=== PATIENT | female | born 1995 | race Caucasian/White ===

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

== ENCOUNTER 2017-02-16 05:49 | Inpatient (IN) | payer OTHER ==
[~2017-02-16] VITALS: Ht 160 cm; Wt 76.0 kg
--- OUTSIDE RECORDS SUMMARY | ~2017-02-16 | XMS ---
Demographics + + + | Address | [address] | | | [place] [address] | + + + | Preferred Language | Unknown | + + + | Marital Status | Unknown | + + + | Yazdanism Affiliation | Unknown | + + + | Race | Unknown | + + + | Ethnic Group | Unknown | + + + Author + + + | Author | [facility] | + + + | Organization | [facility] | + + + | Address | [address] | | | [place] [address] | + + + | Phone | | + + + Care Team Providers + + + + | Care Return To Factory Clerk Name | Role | Phone | + + + + Unavailable | Unavailable | + + + + PROBLEMS +---------+ + + +--------+ + + | Type | Condition | ICD9-CM | [id number] | Onset | Condition | SNOMED | | | | Code | Code | Dates | Status | Code | +---------+ + + +--------+ + + | Problem | Encounter | | Z34.00 | | Active | [id number] | | | for | | | [...] | | F41.9 | | Active | [id number] | +---------+ + + +--------+ + + ALLERGIES No Information SOCIAL HISTORY Never Assessed PLAN OF CARE VITAL SIGNS MEDICATIONS Unknown Medications RESULTS No Results PROCEDURES No Known procedures IMMUNIZATIONS No Known Immunizations"
== END 2017-02-18 13:15 | disposition home or self-care (01) | DRG 775 ==
LOC: FBC 05:49
PROVIDERS: ADMIT Obstetrics & Gynecology
PROC: 10E0XZZ Delivery of Products of Conception, External Approach (ICD-10-PCS; principal; 2017-02-16)
PROC: 10907ZC Drainage of Amniotic Fluid, Therapeutic from Products of Conception, Via Natural or Artificial Opening (ICD-10-PCS; 2017-02-16)
DX: O14.94 Unspecified pre-eclampsia, complicating childbirth (principal); Z88.8 Allergy status to other drugs, medicaments and biological substances; Z87.440 Personal history of urinary (tract) infections; Z86.19 Personal history of other infectious and parasitic diseases; Z83.2 Family history of diseases of the blood and blood-forming organs and certain disorders involving the immune mechanism; Z3A.37 37 weeks gestation of pregnancy; Z37.0 Single live birth
CPT/HCPCS: 36415; 82565; 84450; 84520; 84550; 85025; 85027; J2590

== ENCOUNTER 2018-04-10 12:20 | Emergency (ER) | payer OTHER ==
[~2018-04-10] VITALS: Ht 160 cm; Wt 49.9 kg
== END 2018-04-10 14:25 | disposition home or self-care (01) ==
LOC: ED 12:20
DX: G43.109 Migraine with aura, not intractable, without status migrainosus (principal); Z88.6 Allergy status to analgesic agent; Z88.7 Allergy status to serum and vaccine
CPT/HCPCS: 70450; 85651; 99284-25

== ENCOUNTER 2020-02-12 14:29 | Emergency (ER) | payer OTHER ==
[~2020-02-12] VITALS: Ht 160 cm; Wt 60.8 kg
--- NOTE | ~2020-02-12 | HP ---
[facility] [address] [place], [place] [address] Draft ADMISSION DATE: 02/12/2020 CHIEF COMPLAINT: Vaginal bleeding. HISTORY OF PRESENT ILLNESS: Ms. Marie is a very pleasant 25-year-old G2, P1-0-0-1 white female, who presents to the emergency department for possible ectopic . The patient had 1st day of LMP 01/08/2020, yielding estimated gestational age at 5 weeks 0 days. She called the office complaining of positive test and right adnexal pain. She underwent ultrasound that demonstrated an 11 mm probable gestational sac with no yolk sac or pole noted. However, color Doppler showed blood flow circulating probable gestational sac concerning for ectopic . Quant HCG was performed as an outpatient and was 30. Exam was performed yesterday in the office that demonstrated no significant adnexal tenderness. The patient presented to the office this morning complaining of slight increase in vaginal bleeding, although no change in her pain. Bimanual exam was performed this morning that demonstrated no change in her adnexa and no significant tenderness. She was given precautions and plan was made to repeat quant at 48 hours and consider methotrexate if possible. The patient had wanted to avoid the operating room if at all possible. Since being seen this morning, the patient reports a significant increase in her vaginal bleeding and reports bleeding is now like a light period. No clots or evidence of hemorrhage. She reports no nausea, vomiting, fever, or chills. No change in other symptoms. CURRENT MEDICATIONS: None. MEDICAL HISTORY: Anxiety. ALLERGIES: Ibuprofen, throat swelling. SURGICAL HISTORY: None. HOSPITALIZATION: ER for migraine and left side body numbness in 2019. FAMILY HISTORY: Father alive 40 years with a history of testicular cancer. Mother alive 38 years PATIENT NAME: SYDNEE MARIE HISTORY AND PHYSICAL DATE OF : [birth year] REPORT #: [id number] PHYSICIAN: PEPE MALONEY DO PCP: VALENTINA KENNEDY MD REPORT IS CONFIDENTIAL AND NOT TO BE RELEASED WITHOUT AUTHORIZATION [facility] [address] [place], [place] [address] Draft diagnosed with hypertension. Grandfather, testicular cancer. Grandmother, diabetes and hypertension. One twin sister and one son who is healthy. SOCIAL HISTORY: The patient denies tobacco or drug use. She is currently sexually active with one male partner. REVIEW OF SYSTEMS: A complete review of systems was performed and negative except per HPI. PHYSICAL EXAMINATION: VITAL SIGNS: Please see ER documentation. GENERAL: The patient is alert, cooperative, oriented, no acute distress. She is sitting upright in hospital bed, laughing and joking with her partner standing supportive. SKIN: [place], warm, and dry with no rashes exposed skin. HEENT: Normocephalic, atraumatic. NECK: Supple. Trachea midline. No thyromegaly. No lymphadenopathy. CHEST: Normal shape and expansion. No apparent dyspnea. HEART: Regular rate and rhythm. LUNGS: Clear to auscultation bilaterally with regular breathing rate and effort. No accessory muscle use. No wheezes, rhonchi or rales. ABDOMEN: Soft, nondistended, nontender. No hepatomegaly or splenomegaly. No obvious masses or abdominal hernia. BACK: Normal range of motion. SPINE: No CVA tenderness. PELVIC: Female genitalia normal. External genitalia and labia with normal clitoris, urethral meatus bilateral [place]'s, and Bartholin's. Vagina shows a small amount of bright red blood mixed with mucus consistent with HPI. Cervix was closed. Bimanual exam demonstrates no cervical motion tenderness. No uterine tenderness and nontender left adnexa. The right adnexa is unchanged from exam this morning and again yesterday. EXTREMITIES: No edema. ASSESSMENT: 1. Likely ectopic without intrauterine . 2. Vaginal bleeding. PLAN: We reviewed options for management with the patient. I offered the patient diagnostic laparoscopy with possible salpingectomy or salpingostomy depending on laparoscopic findings. Given unchanged physical exam and minimal to no right adnexal tenderness, I feel that it is reasonable to continue expectant management with repeat quant hCG PATIENT NAME: SYDNEE MARIE HISTORY AND PHYSICAL DATE OF : [birth year] REPORT #: [id number] PHYSICIAN: PEPE MALONEY DO PCP: VALENTINA KENNEDY MD REPORT IS CONFIDENTIAL AND NOT TO BE RELEASED WITHOUT AUTHORIZATION [facility] [address] [place], [place] [address] Draft tomorrow. Discussed that quant hCG at this point would be noninformative. Ultrasound was performed yesterday and no interval change supports, repeat ultrasound today. We again reviewed ectopic in detail including indications for evaluation in the emergency department, particularly significant increase in pelvic or abdominal pain, tachycardia, palpitations, lightheadedness, dizziness, etc. The patient understands and again would like to avoid surgery if at all possible. She will present to the lab tomorrow at 48 hours for repeat quant and will then follow up in the office tomorrow for recommendations and likely methotrexate administration. Risks, benefits, and alternatives were discussed in detail with the patient. The patient understands and agrees. Partner also understands and will monitor the patient closely and follow up to the emergency department as needed. Case was reviewed with SARINA Early attending. Pepe Maloney DO JDW/MODL /[id number] Copies: ~ PATIENT NAME: SYDNEE MARIE HISTORY AND PHYSICAL DATE OF : [birth year] REPORT #: [id number] PHYSICIAN: PEPE MALONEY DO PCP: VALENTINA KENNEDY MD REPORT IS CONFIDENTIAL AND NOT TO BE RELEASED WITHOUT AUTHORIZATION
== END 2020-02-12 15:30 | disposition home or self-care (01) ==
LOC: ED 14:29
DX: O20.9 Hemorrhage in early pregnancy, unspecified (principal); Z3A.01 Less than 8 weeks gestation of pregnancy
CPT/HCPCS: 99283

== ENCOUNTER 2020-04-13 00:04 | Emergency (ER) | payer OTHER ==
[~2020-04-13] VITALS: Ht 157.5 cm; Wt 60.0 kg
--- OUTSIDE RECORDS SUMMARY | 2020-04-13 00:06 | XMS ---
PreManage Notification: SYDNEE MARIE Security Family Life Educator Events No recent Security Events currently on file CRITERIA MET - [facility] - 2 Visits in 30 Days CARE PROVIDERS There are no care providers on record at this time. Megan has no Care Guidelines for this patient. [facility] MO.) [facility] NOTE: Visits indicate total known visits. ED/C VISIT TRACKING (12 MO.) [facility] [place] [facility] COMPLAINT: - POSSIBLE HIGH BLOOD PRESSURE 03/25/2020 13:26 [facility] [place] TYPE: Emergency COMPLAINT: - R SIDE HEADACHE, L SIDE BODY NUMBNESS DIAGNOSES: - Headache, unspecified - Allergy status to serum and vaccine - Paresthesia of skin - Allergy status to other drugs, medicaments and biological substances 02/12/2020 14:30 [facility] [place] TYPE: Emergency COMPLAINT: - VAGINAL BLEEDING DIAGNOSES: - Abnormal uterine and vaginal bleeding, unspecified - Less than 8 weeks gestation of - Hemorrhage in early , unspecified INPATIENT VISIT TRACKING (12 MO.) No inpatient visits to display in this time frame [email or web address]
--- NOTE | 2020-04-13 09:53 | EKG ---
[facility] [address] [facility] [place], [place] [address] Signed Normal sinus rhythm Normal ECG No previous ECGs available Confirmed by TYLER DELGADILLO MD ([id number]) on 04/13/2020 9:53:11 AM Electronically Signed By: TYLER DELGADILLO MD 04/13/20 0953 PATIENT NAME: SYDNEE MARIE Electrocardiogram DATE OF : [birth year] PHYSICIAN: TYLER DELGADILLO MD REPORT #: [id number] REPORT IS CONFIDENTIAL AND NOT TO BE RELEASED WITHOUT AUTHORIZATION
== END 2020-04-13 00:48 | disposition home or self-care (01) ==
LOC: ED 00:04
DX: R03.0 Elevated blood-pressure reading, without diagnosis of hypertension (principal); Z88.8 Allergy status to other drugs, medicaments and biological substances; Z88.7 Allergy status to serum and vaccine
CPT/HCPCS: 93005; 93010; 99283-25

== ENCOUNTER 2024-08-19 20:11 | Inpatient (IN) | payer OTHER ==
[~2024-08-19] VITALS: Ht 157.5 cm; Wt 61.2 kg
[2024-08-19] MEDS ORDERED: OXYTOCIN/0.9 % SODIUM CHLORIDE 500 ML IV ONE (21:07)
[2024-08-19] MEDS ORDERED: LACTATED RINGER'S 1,000 ML IV PRN (21:15)
[2024-08-19] MEDS ORDERED: CALCIUM CARBONATE 500 MG CHEW PO PRN ×2 (21:15→22:00)
[2024-08-19] MEDS ORDERED: LIDOCAINE HCL 1% 30 ML SDV INJ PRN (21:15)
[2024-08-19] MEDS ORDERED: MAGNESIUM HYDROXIDE/AL HYDROX 30 ML CUP PO PRN ×2 (21:15→22:00)
[2024-08-19] MEDS ORDERED: TERBUTALINE SULFATE 1 MG/ML AMP SUB-Q PRN (21:15)
[2024-08-19 21:27] VITALS: BP 150/93
[2024-08-19 21:30] LABS: MCH 29.7 PG (25.6-32.2); MCHC 33.3 g/dL (32.2-35.5); MCV 89.3 fL (79.4-94.8); RBC 4.48 M/uL (3.93-5.22)
[2024-08-19 21:33] LABS: PROTEIN, RANDOM URINE 23 mg/dL (NOT ESTABLISHED)
[2024-08-19 21:38] LABS: ALT (SGPT) 44.0 U/L (14-59); AST (SGOT) 30.0 U/L (15-37); GLOMERULAR FILTRATION RATE,EST 116.0 mL/min (>60); PROTEIN, TOTAL 7.3 g/dL (6.4-8.2); UREA NITROGEN 25.0 mg/dL (7-18)
[2024-08-19 21:44] LABS: AMPHETAMINES, URINE NEGATIVE (NEGATIVE); BARBITURATES, URINE NEGATIVE (NEGATIVE); BENZODIAZEPINE, URINE NEGATIVE (NEGATIVE); CANNABINOID, URINE NEGATIVE (NEGATIVE); COCAINE, URINE NEGATIVE (NEGATIVE); ECSTASY, URINE NEGATIVE (NEGATIVE); FENTANYL, URINE NEGATIVE (NEGATIVE); METHADONE, URINE NEGATIVE (NEGATIVE); OPIATES, URINE NEGATIVE (NEGATIVE); OXYCODONE, URINE NEGATIVE (NEGATIVE); PHENCYCLIDINE, URINE NEGATIVE (NEGATIVE)
[2024-08-19 21:57] LABS: ABO O
[2024-08-19 21:58] LABS: ANTIBODY SCREEN NEGATIVE; RH POSITIVE
[2024-08-19] MEDS ORDERED: BENZOCAINE 60 ML AEROSOL TOP PRN (22:00)
[2024-08-19] MEDS ORDERED: HYDROCORTISONE ACETATE 25 MG SUPP PR PRN (22:00)
[2024-08-19] MEDS ORDERED: MAGNESIUM HYDROXIDE 30 ML UDC PO PRN (22:00)
[2024-08-19] MEDS ORDERED: OXYTOCIN/0.9 % SODIUM CHLORIDE 500 ML IV SCH (22:00)
[2024-08-19] MEDS ORDERED: ACETAMINOPHEN 325 MG TAB PO PRN (22:00)
[2024-08-19] MEDS ORDERED: LIDOCAINE 2% VISCOUS 6 ML SYR TOP ONE ×2 (22:00)
[2024-08-19] MEDS ORDERED: WITCH HAZEL/GLYCERIN 1 EA PAD TOP PRN (22:00)
[2024-08-19] MEDS ORDERED: NIFEdipine XL 30 MG TAB ONE (23:42)
[2024-08-20] MEDS ORDERED: SENNOSIDES/DOCUSATE 1 EA TAB PO SCH (09:00)
[2024-08-20 17:25] VITALS: BP 132/83
[2024-08-20] MEDS ORDERED: NIFEdipine XL 30 MG TAB PO SCH (18:00)
== END 2024-08-21 13:28 | disposition home or self-care (01) | DRG 807 ==
LOC: FBCO 20:11 → FBC 20:51
PROVIDERS: ADMIT Advanced Practice Midwife; ATTEND Advanced Practice Midwife
PROC: 10E0XZZ Delivery of Products of Conception, External Approach (ICD-10-PCS; principal; 2024-08-19)
DX: O80 Encounter for full-term uncomplicated delivery (principal); Z37.0 Single live birth; O99.344 Other mental disorders complicating childbirth; F41.9 Anxiety disorder, unspecified; Z3A.38 38 weeks gestation of pregnancy
CPT/HCPCS: 36415; 80053; 80307; 82570; 84156; 84550; 85027; 86850; 86900; 86901